=== PATIENT | female | born 1960 | race Caucasian/White ===

== ENCOUNTER 2018-08-05 13:17 | Emergency (ER) | payer MEDICAID, OTHER, SELFPAY ==
[~2018-08-05] VITALS: Ht 162.6 cm; Wt 113.6 kg
[2018-08-05] MEDS ORDERED: METF-839 PO (13:25)
[2018-08-05] MEDS ORDERED: CITA40TA4 PO (13:25)
[2018-08-05] MEDS ORDERED: LISI-538 PO (13:25)
[2018-08-05] MEDS ORDERED: RANI150T PO (13:25)
[2018-08-05] MEDS ORDERED: TIZA4CAP PO (13:25)
[2018-08-05] MEDS ORDERED: NAPR-885 PO (13:25)
[2018-08-05] MEDS ORDERED: PRED20TA PO (14:25)
[2018-08-05] MEDS ORDERED: ROBA500T PO (14:27)
[2018-08-05 14:45] VITALS: BP 157/79
== END 2018-08-05 15:25 | disposition home or self-care (01) ==
LOC: M ED 13:17
DX: M51.36 Other intervertebral disc degeneration, lumbar region (principal); M54.41 Lumbago with sciatica, right side; E11.9 Type 2 diabetes mellitus without complications; Z79.84 Long term (current) use of oral hypoglycemic drugs; Z79.899 Other long term (current) drug therapy; Z88.2 Allergy status to sulfonamides

== ENCOUNTER → 2019-01-13 | Outpatient (REF) | payer OTHER ==
[~2019-01-13] MED LIST: CITA40TA4 PO; LISI-538 PO; METF-839 PO; NAPR-885 PO; PRED20TA PO; RANI150T PO; ROBA500T PO; TIZA4CAP PO
[2019-01-13 17:56] LABS: C REACTIVE PROTEIN QUANTITATIV < 0.30 MG/DL (0.00-0.30); RHEUMATOID FACTOR QUANT < 10.0 IU/ML (<15.0)
[2019-01-19 14:07] LABS: ANTINUCLEAR ANTIBODIES DIRECT Negative (Negative); HLA-B27 Negative (.)
== END ==
LOC: M LABDRAW1 16:45
PROVIDERS: ATTEND Physician Assistant
DX: M47.817 Spondylosis without myelopathy or radiculopathy, lumbosacral region (principal)

== ENCOUNTER → 2019-07-10 | Outpatient (REF) | payer OTHER ==
[2019-07-10 18:46] LABS: CHLAMYDIA DNA AMPLIFICATION NEGATIVE (NEGATIVE); GC DNA AMPLIFICATION NEGATIVE (NEGATIVE)
== END ==
LOC: M SFHCLERA 10:49
PROVIDERS: ATTEND Nurse Practitioner Family
DX: R30.0 Dysuria (principal); R53.81 Other malaise

== ENCOUNTER → 2019-07-12 | Outpatient (CLI) | payer OTHER ==
[2019-07-12 12:16] LABS: BLOOD UREA NITROGEN 16 MG/DL (7-18); CREATININE FOR GFR 0.98 MG/DL (0.55-1.30); GLOMERULAR FILTRATION RATE > 60.0 (>45)
== END ==
LOC: M LAB 09:48
PROVIDERS: ATTEND Physician Assistant
DX: M47.817 Spondylosis without myelopathy or radiculopathy, lumbosacral region (principal); M51.37 Other intervertebral disc degeneration, lumbosacral region

== ENCOUNTER → 2019-07-17 | Outpatient (CLI) | payer OTHER ==
--- NOTE | 2019-07-17 09:31 | REPVR ---
PROCEDURE INFORMATION: Exam: MR Lumbar Spine Without Contrast. Exam date and time: 07/17/2019 8:27 AM Age: 58 years old Clinical indication: Patient HX: Low back pain sciatica worse on RT side nki no priors; Additional info: Ddd lumbosacral region TECHNIQUE: Imaging protocol: Multiplanar magnetic resonance images of the lumbar spine without intravenous contrast. COMPARISON: No relevant prior studies available. FINDINGS: Vertebrae: The lumbar vertebral bodies are normal in height , signal intensity and alignment.No acute fracture or dislocation is seen. Marrow: There is a normal proportion of hematopoietic bone marrow and fat for this patient's age.There is no evidence of abnormal bone marrow signal intensity to suggest contusion or infection. Spinal epidural space: There is no evidence of epidural masses or hemorrhage. Spinal cord: The conus medullaris is normal. The cauda equina nerve roots demonstrate no crowding or displacement. L1-L2: There is a mild diffuse posterior bulge causing mild effacement of the thecal sac.The facet joints demonstrate moderate degenerative narrowing and sclerosis. There is thickening of the ligamentum flavum.There is no evidence of spinal canal narrowing. There is mild bilateral foraminal stenosis. L2-L3: There is a mild diffuse posterior bulge causing mild effacement of the thecal sac. Moderate left foraminal protrusion.The facet joints demonstrate marked degenerative narrowing and sclerosis.There is thickening of the ligamentum flavum.There is mild spinal canal narrowing, with an AP canal dimension of 10 mm. There is severe left foraminal stenosis. There is compression on the left exiting nerve root. L3-L4: There is a mild diffuse posterior bulge causing mild effacement of the thecal sac.The facet joints demonstrate moderate degenerative narrowing and sclerosis. There is thickening of the ligamentum flavum.There is mild spinal canal narrowing, with an AP canal dimension of 10 mm. There is mild bilateral foraminal stenosis. L4-L5: There is a mild diffuse posterior bulge causing mild effacement of the thecal sac.The facet joints demonstrate marked degenerative narrowing and sclerosis. There is thickening of the ligamentum flavum.There is mild spinal canal narrowing, with an AP canal dimension of 10 mm. There is mild left foraminal stenosis. There is severe right foraminal stenosis. There is compression on the right exiting nerve root. L5-S1:. Small diffuse posterior herniation.The facet joints demonstrate moderate degenerative narrowing and sclerosis.There is no evidence of spinal canal narrowing. There is moderate bilateral foraminal stenosis. Soft tissues: The prevertebral soft tissues appear normal. IMPRESSION: MRI of the lumbar spine reveals multilevel degenerative spondylitic changes and degenerative disc disease as described above. Electronically signed by: Wilfred Martinez On 07/17/2019 09:31:01 AM
== END ==
LOC: M RAD 08:06
PROVIDERS: ATTEND Physician Assistant
DX: M48.061 Spinal stenosis, lumbar region without neurogenic claudication (principal); M51.26 Other intervertebral disc displacement, lumbar region; M51.27 Other intervertebral disc displacement, lumbosacral region

== ENCOUNTER → 2019-07-19 | Outpatient (CLI) | payer OTHER ==
[~2019-07-19] MED LIST changes: +CONRAY-43 43% 50ML VIAL (Q9960) As Ordered ONE; +PROHANCE 279.3MG/ML 5ML VIAL (A9576) As Ordered ONE
--- NOTE | 2019-07-19 10:23 | REP ---
MR arthrogram right hip: History: Rule out labral tear. Trochanteric bursitis. Right hip pain for 1 year. Comparison studies: No comparison study. Technique: Precontrast imaging includes coronal T1 and T2-weighted scans of both hips. Postcontrast small field of view high resolution axial, coronal and sagittal images are acquired in T1 and T2-weighted scans with fat saturation. MR arthrographic findings: Pre-injection MR imaging demonstrates that cortical and medullary bone signal intensity is normal in the proximal femurs and in the visualized bony pelvic ring bilaterally. There is no evidence to suggest avascular necrosis. There is a small peritrochanteric fluid collection and there is surrounding edema in the soft tissues about the greater trochanter on the right consistent with peritrochanteric tendinobursitis. There are similar but less prominent changes on the left. There is bilateral spurring of the greater trochanters. There is no evidence of significant hip joint effusion. The pre-injection bilateral images demonstrate a somewhat nodular change in the uterine endometrium which merits further evaluation. I cannot exclude an endometrial mass. Recommend pelvic sonography. Also noted is some heterogeneous increased signal intensity at the common hamstring tendon insertion on the right which may reflect hamstring tendonitis. Post injection MR imaging demonstrates good filling and enhancement of the hip articulation. There is some extra-articular injection artifact particularly anteriorly. There is no evidence of labral cartilage disruption. Mild acetabular and femoral head chondromalacia is suspected. Ligamentum teres is intact. No loose body is seen. Head and neck junction morphology is felt to be normal. Impression: There is no evidence of labral tear. There are fairly prominent peritrochanteric tendino-bursitis changes right greater than left. Mild chondromalacia changes are noted. Possible 2.8 cm endometrial nodule or mass lesion. Recommend pelvic sonography, rule out endometrial neoplasm. Electronically Signed by Star Perkins MD 07/19/2019 02:29 P
--- NOTE | 2019-07-19 14:07 | REP ---
Reason For Exam/Comment: Trochanteric bursitis, rule out labral tear Procedure: Right hip MRI arthrogram The procedure was performed by TUAN Rosario, under the direct supervision of Dr. Perkins. The benefits and risks including but not limited to pain, infection, bleeding and anaphylaxis were explained to the patient and informed consent was obtained both verbally and written. Directly prior to the start of the procedure, a formal timeout was completed in the procedure room. Technique: The right femoral neck joint space was localized using fluoroscopic guidance. The skin was prepped and draped in the usual sterile fashion. 5 mL of 1% lidocaine 10 mg/ml was used as a local anesthetic. Using fluoroscopic guidance a 22-gauge spinal needle was inserted and advanced to the right femoral neck joint space . 1 mL of Conray 43 was injected to verify needle placement. 12 mL of a solution containing 20 ml of sterile saline and a 0.15 ml of ProHance was injected into the joint. The needle was removed and the patient was taken MRI for post procedural imaging. The patient tolerated the procedure well and there were no immediate complications. 0.2 minutes of fluoroscopy time was utilized for this procedure. Some fluoroscopic images are performed with last image hold technology. These images require no additional radiation. Reviewed by TUAN Moran 07/19/2019 10:21 A Electronically Signed by Star Perkins MD 07/19/2019 01:59 P
== END ==
LOC: M RADPRO 07:09
PROVIDERS: ATTEND Physician Assistant
DX: M70.61 Trochanteric bursitis, right hip (principal)
CPT/HCPCS: 27093; 73723; 77002; A9576; Q9960

== ENCOUNTER 2019-08-01 14:09 | Emergency (ER) | payer OTHER ==
[~2019-08-01] VITALS: Ht 162.6 cm; Wt 133.2 kg
[~2019-08-01 14:09] MED LIST changes: -CONRAY-43 43% 50ML VIAL (Q9960) As Ordered ONE; -PROHANCE 279.3MG/ML 5ML VIAL (A9576) As Ordered ONE
[2019-08-01] MEDS ORDERED: TRAZ-189 PO (14:25)
[2019-08-01] MEDS ORDERED: ALBU8.5H INH (14:25)
[2019-08-01] MEDS ORDERED: DULO1CAP4 PO (14:25)
[2019-08-01] MEDS ORDERED: GABA-843 PO (14:25)
[2019-08-01] MEDS ORDERED: ATOR80TA59 PO (14:26)
[2019-08-01] MEDS ORDERED: ASPIRIN 81 MG CHEW TABLET PO ONE (15:00)
--- NOTE | 2019-08-01 15:00 | REP ---
Chest x-ray: Two views. History: Dyspnea and cough. Findings: Monitoring electrodes are seen. The lungs are symmetrically aerated and free of infiltrate. Pleural angles are sharp. Heart is not felt to be enlarged. There are degenerative changes in the thoracic spine. There is slight fissural thickening visible on the lateral radiograph. There are clips in the upper abdomen on the right. Impression: No active cardiopulmonary disease. Electronically Signed by Star Perkins MD 08/01/2019 02:52 P
[2019-08-01 15:05] LABS: BASO % 0.5 % (0.0-1.0); EOS # 0.5 10^3/uL (0.0-0.5); EOS % 5.9 % (0.0-3.0); HEMATOCRIT 33.3 % (36.0-47.0); HEMOGLOBIN 10.9 g/dl (12.0-15.5); LYMPH # 1.4 10^3/uL (1.5-5.0); LYMPH % 18.9 % (24.0-44.0); MEAN CORPUSCULAR HEMOGLOBIN 28.6 pg (27.0-33.0); MEAN CORPUSCULAR HGB CONC 32.7 g/dl (32.0-36.5); MEAN CORPUSCULAR VOLUME 87.4 fl (80.0-96.0); MONO # 0.7 10^3/uL (0.0-0.8); MONO % 9.2 % (0.0-5.0); NEUTROPHILS # 4.9 10^3/uL (1.5-8.5); PLATELET COUNT, AUTOMATED 184 10^3/uL (150-450); RED BLOOD COUNT 3.81 10^6/uL (4.00-5.40); WHITE BLOOD COUNT 7.6 10^3/uL (4.0-10.0)
[2019-08-01 15:15] LABS: INR 1.09; PROTHROMBIN TIME 13.8 SECONDS (11.8-14.0)
[2019-08-01 15:18] LABS: D-DIMER QUANT 889.3 ng/ml (<500)
--- NOTE | 2019-08-01 15:38 | REP ---
Bilateral lower extremity Duplex Doppler venous ultrasound: Real time compression and duplex Doppler interrogation of the bilateral lower extremity deep venous system is performed. Bilaterally, the common femoral, superficial femoral and popliteal veins are fully compressible with transducer pressure and demonstrate normal spontaneous and phasic flow, without evidence of deep venous thrombosis. Impression: No evidence of deep venous thrombosis of the bilateral lower extremity femoral popliteal venous system. Electronically Signed by Douglas Duke MD 08/01/2019 03:30 P
[2019-08-01 15:41] LABS: ALBUMIN 3.7 GM/DL (3.2-5.2); ALT/SGPT 30 U/L (12-78); BILIRUBIN,DIRECT 0.2 MG/DL (0.0-0.2); BILIRUBIN,TOTAL 0.9 MG/DL (0.2-1.0); BLOOD UREA NITROGEN 11 MG/DL (7-18); CALCIUM LEVEL 9.5 MG/DL (8.8-10.2); CARBON DIOXIDE LEVEL 31 MEQ/L (21-32); CHLORIDE LEVEL 110 MEQ/L (98-107); CK-MB VALUE MASS 1.6 NG/ML (<3.6); CPK CREATINE PHOSPHOKINASE 153 U/L (26-192); CREATININE FOR GFR 0.85 MG/DL (0.55-1.30); GLOMERULAR FILTRATION RATE > 60.0 (>45); GLUCOSE, FASTING 125 MG/DL (70-100); MB/CK RELATIVE INDEX 1.05 (< OR =4); NT-PRO BNP 371 PG/ML (<125); POTASSIUM SERUM 3.8 MEQ/L (3.5-5.1); SODIUM LEVEL 144 MEQ/L (136-145); THYROID STIMULATING HORMONE 0.913 uIU/ML (0.358-3.740); TROPONIN I < 0.02 NG/ML (< 0.10)
[2019-08-01] MEDS ORDERED: ISOVUE-370 76% 100ML VIAL (Q9967) As Ordered ONE (17:11)
--- NOTE | 2019-08-01 17:57 | REPVR ---
PROCEDURE INFORMATION: Exam: CT Angiography Chest With Contrast Exam date and time: 08/01/2019 5:25 PM Age: 58 years old Clinical indication: Chest pain TECHNIQUE: Imaging protocol: Computed tomographic angiography of the chest with intravenous contrast. 3D rendering: MIP and/or 3D reconstructed images were created by the technologist. Radiation optimization: All CT scans at this facility use at least one of these dose optimization techniques: automated exposure control; mA and/or kV adjustment per patient size (includes targeted exams where dose is matched to clinical indication); or iterative reconstruction. Contrast material: ISOVUE 370; Contrast volume: 75 ml; Contrast route: IV; COMPARISON: [place] Chest, 2 view PA, Lat 08/01/2019 2:28 PM FINDINGS: Pulmonary arteries: No pulmonary arterial embolism. Aorta: Unremarkable. No aortic aneurysm. No aortic dissection. Lungs: Mild dependent opacities within the lung bases, likely atelectasis. No pulmonary consolidation. Pleural space: Unremarkable. No pneumothorax. No pleural effusion. Heart: Unremarkable. No cardiomegaly. No pericardial effusion. Gallbladder and bile ducts: Status post cholecystectomy. Spleen: Tiny calcified granulomas within the spleen. Kidneys and ureters: 7 cm cyst in the right kidney upper pole, incompletely visualized. Lymph nodes: Mild mediastinal and bilateral hilar lymphadenopathy, nonspecific. 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 No fracture or suspicious bone lesion. Soft tissues: Unremarkable. IMPRESSION: No pulmonary arterial embolism or other acute abnormality. Electronically signed by: Remy Roman On 08/01/2019 17:57:26 PM
--- NOTE | 2019-08-01 20:17 | ECGEPIP ---
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
--- NOTE | 2019-08-01 20:18 | ECGEPIP ---
[facility] - ED Test Date: 2019-08-01 Pat Name: TALIA SAAVEDRA Department: Room: - Gender: Female Grant Officer: rena : 1960 Requested By: DONNELL Hutton Order Number: [id number] Reading MD: Bridgett Larson Measurements Intervals [place] Rate: 81 P: 51 [place]: 186 QRS: -2 QRSD: 93 T: -7 QT: 384 QTc: 448 Interpretive Statements SINUS RHYTHM MINIMAL ST DEPRESSION INCREASED RATE 08/01/19 Electronically Signed on 08-01-2019 20:18:34 EDT by Bridgett Larson
[2019-08-01] MEDS ORDERED: ONDANSETRON 4MG/2ML VIAL (J2405) IV ONE (22:00)
[2019-08-01 22:02] LABS: CK-MB VALUE MASS 1.4 NG/ML (<3.6); CPK CREATINE PHOSPHOKINASE 152 U/L (26-192); MB/CK RELATIVE INDEX 0.92 (< OR =4); TROPONIN I < 0.02 NG/ML (< 0.10)
[2019-08-01 22:30] VITALS: BP 181/86
== END 2019-08-01 22:53 | disposition home or self-care (01) ==
LOC: M ED 14:09 → EDBD 14:09 → M ED 22:53
DX: R07.89 Other chest pain (principal); I10 Essential (primary) hypertension; J45.909 Unspecified asthma, uncomplicated; E78.5 Hyperlipidemia, unspecified; F33.9 Major depressive disorder, recurrent, unspecified; Z79.899 Other long term (current) drug therapy; Z79.84 Long term (current) use of oral hypoglycemic drugs; Z88.1 Allergy status to other antibiotic agents; Z88.2 Allergy status to sulfonamides; Z88.8 Allergy status to other drugs, medicaments and biological substances
CPT/HCPCS: 71046; 71275; 80048; 80076; 82550; 82553; 83880; 84443; 85025; 85379; 85610; 87486; 87581; 87633; 87798; 93005; 93041; 93970; 94760; 96374; 99285; J2405; Q9967

== ENCOUNTER → 2019-08-09 | Outpatient (CLI) | payer OTHER ==
[~2019-08-09] MED LIST changes: +ALBU8.5H INH; +ATOR80TA59 PO; +DULO1CAP4 PO; +GABA-843 PO; +TRAZ-189 PO
== END ==
LOC: M SLEEP HO 13:01
PROVIDERS: ATTEND Internal Medicine Cardiovascular Disease
DX: R06.83 Snoring (principal)

== ENCOUNTER → 2020-05-23 | Outpatient (CLI) | payer OTHER ==
[2020-05-23 14:23] LABS: BASO # 0.1 10^3/uL (0.0-0.2); BASO % 0.9 % (0.0-1.0); EOS # 0.5 10^3/uL (0.0-0.5); EOS % 8.4 % (0.0-3.0); HEMOGLOBIN 10.9 g/dl (12.0-15.5); LYMPH # 1.8 10^3/uL (1.5-5.0); MEAN CORPUSCULAR HEMOGLOBIN 25.3 pg (27.0-33.0); MEAN CORPUSCULAR HGB CONC 30.3 g/dl (32.0-36.5); MEAN CORPUSCULAR VOLUME 83.7 fl (80.0-96.0); MONO # 0.7 10^3/uL (0.0-0.8); MONO % 12.4 % (0.0-5.0); NEUTROPHILS # 2.5 10^3/uL (1.5-8.5); NEUTROPHILS % 45.8 % (36.0-66.0); PLATELET COUNT, AUTOMATED 190 10^3/uL (150-450); WHITE BLOOD COUNT 5.5 10^3/uL (4.0-10.0)
[2020-05-23 14:47] LABS: BLOOD UREA NITROGEN 13 MG/DL (7-18); CALCIUM LEVEL 9.5 MG/DL (8.8-10.2); CARBON DIOXIDE LEVEL 33 MEQ/L (21-32); CHLORIDE LEVEL 104 MEQ/L (98-107); CHOLESTEROL LEVEL 232 MG/DL (<200); CHOLESTEROL RISK RATIO 3.267 (<5); CREATININE FOR GFR 0.99 MG/DL (0.55-1.30); GLOMERULAR FILTRATION RATE > 60.0 (>45); GLUCOSE, FASTING 96 MG/DL (70-100); HDL CHOLESTEROL 71 MG/DL (>40); LDL CHOLESTEROL 136 MG/DL (<100); NON-HDL-C 161 MG/DL; POTASSIUM SERUM 4.6 MEQ/L (3.5-5.1); SODIUM LEVEL 139 MEQ/L (136-145); TRIGLYCERIDES LEVEL 124 MG/DL (<150)
[2020-05-23 14:50] LABS: HEMOGLOBIN A1c 6.2 %
[2020-05-23 14:54] LABS: TOTAL 25(OH) VITAMIN D 25.6 NG/ML (30.0-100.0)
== END ==
LOC: M PLALAB 11:51
PROVIDERS: ATTEND Internal Medicine
DX: E11.9 Type 2 diabetes mellitus without complications (principal)

== ENCOUNTER 2020-11-28 15:06 | Emergency (ER) | payer OTHER ==
[~2020-11-28] VITALS: Ht 162.6 cm; Wt 127.3 kg
[~2020-11-28 15:06] MED LIST changes: +GABA-282 PO; -GABA-843 PO; -LISI-538 PO; +LISI20TA33 PO
--- NOTE | 2020-11-28 15:31 | REP ---
INDICATION: FALL COMPARISON: None TECHNIQUE: Five views FINDINGS: There is tricompartmental marginal osteophytosis. There is a tiny oval-shaped smoothly marginated appearing ossific density seen superior and lateral to the patella. IMPRESSION: 1. Chronic changes as described above. 2. Age undetermined tiny patellar fracture versus tiny bipartite patella. This needs to be correlated clinically and if necessary obtain CT. <Electronically signed by Arturo Carty > 11/28/20 [id number]
[2020-11-28] MEDS ORDERED: BOOSTRIX/ADACEL VACCINE (DIPHTH/PERTUSS/ACELL/TETANUS) 0.5ML SYR IM ONE (18:20)
[2020-11-28] MEDS ORDERED: ACETAMINOPHEN 500 MG TAB PO ONE (18:20)
--- NOTE | 2020-11-28 18:39 | REPVR ---
PROCEDURE INFORMATION: Exam: CT Right Lower Extremity Without Contrast, Knee Exam date and time: 11/28/2020 5:22 PM Age: 59 years old Clinical indication: Injury or trauma; Fall; Blunt trauma; Knee; Right; Additional info: Fall, possible patellar fracture on imag TECHNIQUE: Imaging protocol: CT of the Right lower extremity without contrast was performed. Exam focused on the knee. Radiation optimization: All CT scans at this facility use at least one of these dose optimization techniques: automated exposure control; mA and/or kV adjustment per patient size (includes targeted exams where dose is matched to clinical indication); or iterative reconstruction. COMPARISON: CR Knee, complete 11/28/2020 3:04 PM FINDINGS: Bones/joints: There is a large suprapatellar joint effusion. There is prominent osteophyte formation medial and lateral compartments. There is osteophyte formation along the patella anterior compartment. Osteophyte formation is noted along the medial and lateral margin of the tibial spine and also the posterior aspect of the tibia. There is no evidence of fracture. Soft tissues: Normal. IMPRESSION: 1. Large suprapatellar joint effusion. 2. Osteophyte formation all 3 compartments. Electronically signed by: Noah Sebastian On 11/28/2020 18:38:31 PM
[2020-11-28 19:18] VITALS: BP 119/65
== END 2020-11-28 19:20 | disposition home or self-care (01) ==
LOC: M ED 15:06
DX: S80.211A Abrasion, right knee, initial encounter (principal); M25.561 Pain in right knee; M25.461 Effusion, right knee; W19.XXXA Unspecified fall, initial encounter; Y92.009 Unspecified place in unspecified non-institutional (private) residence as the place of occurrence of the external cause; Y93.9 Activity, unspecified; Y99.9 Unspecified external cause status; E11.9 Type 2 diabetes mellitus without complications; I10 Essential (primary) hypertension; J45.909 Unspecified asthma, uncomplicated; M25.761 Osteophyte, right knee; Z79.84 Long term (current) use of oral hypoglycemic drugs; Z79.899 Other long term (current) drug therapy; Z88.2 Allergy status to sulfonamides; Z88.6 Allergy status to analgesic agent

== ENCOUNTER → 2021-01-14 | Outpatient (CLI) | payer OTHER ==
--- NOTE | 2021-01-14 11:35 | REP ---
INDICATION: PAIN IN DANELLE KNEE. COMPARISON: Radiographs and CT 11/28/2020. TECHNIQUE: Multiple sequences obtained in the axial, coronal and sagittal planes. FINDINGS: Menisci: There is a complex tear of the anterior and posterior horns of the lateral meniscus. The medial meniscus appears intact. Cruciate ligaments: Intact. Collateral ligaments: Intact. Extensor mechanism/patellar retinacula: Intact. Cartilage: There is moderate global chondromalacia. There is some cartilaginous fissuring of the weight-bearing surface of the lateral femoral condyle and tibial plateau. Bone marrow: There is minor subcortical marrow edema in the posterior medial femoral condyle. Joint fluid: There is a large joint effusion. Popliteal region: There is a Card's cyst medially measuring approximately 3.1 x 1.4 x 0.8 cm. There is moderate diffuse spurring. IMPRESSION: Complex tear anterior and posterior horns lateral meniscus. Moderate global chondromalacia with fissuring of the weight-bearing surface of the lateral femoral condyle and tibial plateau. Large joint effusion. Card's cyst. <Electronically signed by Douglas Duke > 01/14/21 [id number]
--- NOTE | 2021-01-14 11:48 | REP ---
INDICATION: DANELLE KNEE PAIN. COMPARISON: 07/18/2020. TECHNIQUE: Multiple sequences obtained in the axial, coronal and sagittal planes. FINDINGS: Menisci: There is a complex tear of the posterior horn of the medial meniscus. The lateral meniscus appears intact. Cruciate ligaments: Intact. Collateral ligaments: Intact. Extensor mechanism/patellar retinacula: Intact. Cartilage: Moderate diffuse chondromalacia of the patella is stable. There is stable moderately severe chondromalacia of the medial femoral condyle and tibial plateau. There is moderate diffuse chondromalacia of the lateral femoral condyle and tibial plateau. There is a focal chondral defect of the weight-bearing surface of both the lateral femoral condyle and tibial plateau measuring approximately 5 mm in diameter, mildly progressed. Bone marrow: Mild subchondral marrow edema is seen peripherally in the medial femoral condyle, unchanged. Joint fluid: There is a small joint effusion. Popliteal region: There is a very small amount of fluid in the medial popliteal fossa. IMPRESSION: No significant change since prior study as discussed above. <Electronically signed by Douglas Duke > 01/14/21 [id number]
== END ==
LOC: M PLAIMG 10:12
PROVIDERS: ATTEND Physician Assistant
DX: S83.232A Complex tear of medial meniscus, current injury, left knee, initial encounter (principal); S83.231A Complex tear of medial meniscus, current injury, right knee, initial encounter; M22.42 Chondromalacia patellae, left knee; M25.462 Effusion, left knee; M25.461 Effusion, right knee; M71.21 Synovial cyst of popliteal space [Baker], right knee; M25.561 Pain in right knee; M25.562 Pain in left knee; X58.XXXA Exposure to other specified factors, initial encounter; Y92.9 Unspecified place or not applicable; Y99.9 Unspecified external cause status

== ENCOUNTER → 2021-02-25 | Outpatient (CLI) | payer OTHER ==
--- NOTE | 2021-02-26 17:30 | REPVR ---
PROCEDURE INFORMATION: Exam: MR Lumbar Spine Without Contrast Exam date and time: 02/25/2021 2:47 PM Age: 60 years old Clinical indication: Low back pain; Additional info: Disc degeneration TECHNIQUE: Imaging protocol: Multiplanar magnetic resonance images of the lumbar spine without intravenous contrast. COMPARISON: MRI-Spine, L.S. without con 07/17/2019 8:24 AM FINDINGS: Vertebral body heights are maintained. No abnormal marrow signal. No cord compression. No abnormal cord signal. Conus medullaris terminates at the L1 level. Paravertebral soft tissues are unremarkable. L1-L2: Broad-based disc bulge and facet hypertrophy cause mild canal narrowing and mild bilateral foraminal narrowing. L2-L3: Broad-based disc bulge and facet hypertrophy cause mild canal narrowing and effacement of the left lateral recess. Mild right and moderate to severe left foraminal narrowing with impingement upon the exiting left L2 nerve root. L3-L4: Combination of broad-based disc bulge, facet hypertrophy, and thickening of the ligamentum flavum cause mild to moderate canal narrowing with effacement of the bilateral lateral recesses. Mild right and moderate left foraminal narrowing. L4-L5: Broad-based disc bulge and facet hypertrophy cause mild canal narrowing with severe right and moderate to severe left foraminal narrowing and impingement upon the exiting bilateral L4 nerve roots. L5-S1: Broad-based disc bulge and facet hypertrophy cause mild canal narrowing with effacement of the bilateral lateral recesses and impingement upon the traversing bilateral S1 nerve roots. Moderate to severe bilateral foraminal narrowing with impingement upon the bilateral exiting L5 nerve roots. IMPRESSION: Multilevel advanced spondylotic changes of the lumbar spine, as detailed above. Electronically signed by: Igor Butcher On 02/26/2021 17:29:33 PM
== END ==
LOC: M PLAIMG 02-17 09:21
PROVIDERS: ATTEND Physician Assistant
DX: M51.36 Other intervertebral disc degeneration, lumbar region (principal)

== ENCOUNTER → 2021-07-23 | Outpatient (CLI) | payer OTHER ==
[~2021-07-23] MED LIST changes: -CITA40TA4 PO; +CITA40TA7 PO
== END ==
LOC: M RAD 12:32
PROVIDERS: ATTEND Physician Assistant
DX: N93.9 Abnormal uterine and vaginal bleeding, unspecified (principal); D25.9 Leiomyoma of uterus, unspecified

== ENCOUNTER → 2022-01-15 | Outpatient (CLI) | payer OTHER ==
[2022-01-15 10:27] LABS: APPEARANCE, URINE MANUAL CLEAR (CLEAR); COLOR, URINE MANUAL YELLOW (YELLOW); PH,URINE MAN 5.5 UNITS (5.0 - 7.0)
[2022-01-15 10:28] LABS: BASO % 0.8 % (0.0-1.0); BILIRUBIN, URINE MANUAL NEGATIVE (NEGATIVE); BLOOD URINE MANUAL NEGATIVE (NEGATIVE); EOS # 0.5 10^3/uL (0.0-0.5); EOS % 8.9 % (0.0-3.0); GLUCOSE, URINE (UA) MANUAL NEGATIVE (NEGATIVE); HEMATOCRIT 39.5 % (36.0-47.0); HEMOGLOBIN 12.6 g/dl (12.0-15.5); KETONE, URINE MANUAL NEGATIVE (NEGATIVE); LEUKOCYTE ESTERASE, URINE MAN NEGATIVE (NEGATIVE); LYMPH # 1.8 10^3/uL (1.5-5.0); LYMPH % 35.1 % (24.0-44.0); MEAN CORPUSCULAR HEMOGLOBIN 27.9 pg (27.0-33.0); MEAN CORPUSCULAR HGB CONC 31.9 g/dl (32.0-36.5); MEAN CORPUSCULAR VOLUME 87.6 fl (80.0-96.0); MONO # 0.6 10^3/uL (0.0-0.8); MONO % 11.6 % (2.0-8.0); NEUTROPHILS # 2.2 10^3/uL (1.5-8.5); NEUTROPHILS % 42.8 % (36.0-66.0); NITRITE, URINE MANUAL NEGATIVE (NEGATIVE); PLATELET COUNT, AUTOMATED 157 10^3/uL (150-450); PROTEIN, URINE MANUAL NEGATIVE (NEGATIVE); RED BLOOD COUNT 4.51 10^6/uL (4.00-5.40); UROBILINOGEN, URINE MANUAL NORMAL (NORMAL); WHITE BLOOD COUNT 5.2 10^3/uL (4.0-10.0)
[2022-01-15 11:27] LABS: ALBUMIN 3.6 GM/DL (3.2-5.2); BILIRUBIN,TOTAL 0.6 MG/DL (0.2-1.0); CHOLESTEROL RISK RATIO 4.306 (<5); CREATININE FOR GFR 1.03 MG/DL (0.55-1.30); FREE T4 0.95 NG/DL (0.76-1.46); GLOMERULAR FILTRATION RATE 57.6 (>45); THYROID STIMULATING HORMONE 1.85 uIU/ML (0.358-3.740); TOTAL PROTEIN 7.1 GM/DL (6.4-8.2)
[2022-01-15 12:00] LABS: HEMOGLOBIN A1c 6.9 %
[2022-01-15 12:03] LABS: TOTAL 25(OH) VITAMIN D 24.8 NG/ML (30.0-100.0)
== END ==
LOC: M PLALAB 08:28
PROVIDERS: ATTEND Internal Medicine
DX: E78.2 Mixed hyperlipidemia (principal); E11.9 Type 2 diabetes mellitus without complications; I10 Essential (primary) hypertension; E55.9 Vitamin D deficiency, unspecified

== ENCOUNTER → 2022-06-23 | Outpatient (CLI) | payer OTHER, MEDICARE | LOC: M PLAIMG 09:18 | PROVIDERS: ATTEND Family Medicine | DX: R42 Dizziness and giddiness (principal) ==

== ENCOUNTER → 2022-07-10 | Outpatient (CLI) | payer MEDICARE, OTHER ==
[2022-07-10 14:20] LABS: APPEARANCE, URINE HAZY (CLEAR); BACTERIA, URINE AUTO NEGATIVE (NEGATIVE); BILIRUBIN, URINE AUTO NEGATIVE (NEGATIVE); BLOOD, URINE BLOOD NEGATIVE (NEGATIVE); COLOR, URINE YELLOW (YELLOW); GLUCOSE, URINE (UA) AUTO NEGATIVE (NEGATIVE); KETONE, URINE AUTO NEGATIVE (NEGATIVE); LEUKOCYTE ESTERASE, URINE AUTO NEGATIVE (NEGATIVE); NITRITE, URINE AUTO NEGATIVE (NEGATIVE); PROTEIN, URINE AUTO NEGATIVE (NEGATIVE); RBC, URINE AUTO 0 /HPF (0-3); SPECIFIC GRAVITY URINE AUTO 1.017 (1.002-1.035); SQUAMOUS EPITHELIAL CELL UR AU 21 /HPF (0-6); UROBILINOGEN, URINE AUTO 0.2 mg/dL (0.0-2.0); WBC, URINE AUTO 3 /HPF (0-3)
[2022-07-10 14:28] LABS: BASO # 0.1 10^3/uL (0.0-0.2); BASO % 0.9 % (0.0-1.0); EOS # 0.4 10^3/uL (0.0-0.5); EOS % 7.3 % (0.0-3.0); HEMATOCRIT 39.3 % (36.0-47.0); HEMOGLOBIN 12.5 g/dl (12.0-15.5); LYMPH # 1.7 10^3/uL (1.5-5.0); LYMPH % 32.2 % (24.0-44.0); MEAN CORPUSCULAR HEMOGLOBIN 28.4 pg (27.0-33.0); MEAN CORPUSCULAR HGB CONC 31.8 g/dl (32.0-36.5); MEAN CORPUSCULAR VOLUME 89.3 fl (80.0-96.0); MONO # 0.6 10^3/uL (0.0-0.8); MONO % 10.4 % (2.0-8.0); NEUTROPHILS # 2.6 10^3/uL (1.5-8.5); NEUTROPHILS % 48.8 % (36.0-66.0); PLATELET COUNT, AUTOMATED 187 10^3/uL (150-450); WHITE BLOOD COUNT 5.4 10^3/uL (4.0-10.0)
[2022-07-10 14:35] LABS: CREATININE, URINE 147.4 MG/DL
[2022-07-10 14:36] LABS: MAU/CREAT RATIO 16.9 MCG/MG (0.0-30.0)
[2022-07-10 14:43] LABS: ALBUMIN 3.7 G/DL (3.2-5.2); BILIRUBIN,TOTAL 0.9 MG/DL (0.3-1.2); CALCIUM LEVEL 10.1 MG/DL (8.3-10.6); CHOLESTEROL RISK RATIO 3.44 (<5); CREATININE FOR GFR 1.02 MG/DL (0.55-1.30); FREE T4 1.03 NG/DL (0.89-1.76); GLOMERULAR FILTRATION RATE 58.3 (>45); POTASSIUM SERUM 4.5 MMOL/L (3.5-5.1); THYROID STIMULATING HORMONE 1.25 uIU/ML (0.55-4.78)
[2022-07-10 15:33] LABS: HEMOGLOBIN A1c 6.3 % (4.0-6.0)
== END ==
LOC: M PLALAB 10:13
PROVIDERS: ATTEND Family Medicine
DX: E11.9 Type 2 diabetes mellitus without complications (principal); E66.9 Obesity, unspecified; F33.9 Major depressive disorder, recurrent, unspecified

== ENCOUNTER → 2022-07-16 | Outpatient (CLI) | payer MEDICARE, OTHER | LOC: M WHC 09:45 | PROVIDERS: ATTEND Family Medicine | DX: Z12.31 Encounter for screening mammogram for malignant neoplasm of breast (principal) ==

== ENCOUNTER → 2023-09-22 | Outpatient (CLI) | payer OTHER, MEDICAID ==
[2023-09-22 14:23] LABS: APPEARANCE, URINE CLEAR (CLEAR); BACTERIA, URINE AUTO NEGATIVE (NEGATIVE); BILIRUBIN, URINE AUTO NEGATIVE (NEGATIVE); BLOOD, URINE BLOOD 2+ (NEGATIVE); COLOR, URINE YELLOW (YELLOW); GLUCOSE, URINE (UA) AUTO NEGATIVE (NEGATIVE); KETONE, URINE AUTO NEGATIVE (NEGATIVE); LEUKOCYTE ESTERASE, URINE AUTO NEGATIVE (NEGATIVE); NITRITE, URINE AUTO NEGATIVE (NEGATIVE); PROTEIN, URINE AUTO NEGATIVE (NEGATIVE); RBC, URINE AUTO 0 /HPF (0-3); SPECIFIC GRAVITY URINE AUTO 1.008 (1.002-1.035); SQUAMOUS EPITHELIAL CELL UR AU 4 /HPF (0-6); UROBILINOGEN, URINE AUTO 0.2 mg/dL (0.0-2.0); WBC, URINE AUTO 0 /HPF (0-3)
[2023-09-22 14:24] LABS: BASO # 0.1 10^3/uL (0.0-0.2); EOS # 0.3 10^3/uL (0.0-0.5); EOS % 5.4 % (0.0-3.0); HEMATOCRIT 31.9 % (36.0-47.0); HEMOGLOBIN 9.6 g/dl (12.0-15.5); LYMPH # 1.5 10^3/uL (1.5-5.0); LYMPH % 28.9 % (24.0-44.0); MEAN CORPUSCULAR HEMOGLOBIN 23.1 pg (27.0-33.0); MEAN CORPUSCULAR HGB CONC 30.1 g/dl (32.0-36.5); MEAN CORPUSCULAR VOLUME 76.7 fl (80.0-96.0); MONO # 0.7 10^3/uL (0.0-0.8); NEUTROPHILS # 2.6 10^3/uL (1.5-8.5); NEUTROPHILS % 50.3 % (36.0-66.0); PLATELET COUNT, AUTOMATED 217 10^3/uL (150-450); RED BLOOD COUNT 4.16 10^6/uL (4.00-5.40); WHITE BLOOD COUNT 5.2 10^3/uL (4.0-10.0)
[2023-09-22 14:31] LABS: HEMOGLOBIN A1c 6.5 % (4.0-6.0)
[2023-09-22 14:39] LABS: CREATININE, URINE 70.9 MG/DL; MAU/CREAT RATIO 14.1 MCG/MG (0.0-30.0)
[2023-09-22 14:40] LABS: ALBUMIN 3.8 G/DL (3.2-5.2); BILIRUBIN,TOTAL 0.7 MG/DL (0.3-1.2); CALCIUM LEVEL 9.9 MG/DL (8.3-10.6); CHOLESTEROL RISK RATIO 2.11 (<5); CREATININE FOR GFR 1.07 MG/DL (0.55-1.30); HDL CHOLESTEROL 67.2 MG/DL (>40); LDL CHOLESTEROL 58.8 MG/DL (<100); NON-HDL-C 74.8 MG/DL; POTASSIUM SERUM 4.3 MMOL/L (3.5-5.1)
[2023-09-22 14:41] LABS: FREE T4 1.17 NG/DL (0.89-1.76); THYROID STIMULATING HORMONE 0.581 uIU/ML (0.55-4.78)
== END ==
LOC: M PLALAB 09:44
PROVIDERS: ATTEND Family Medicine
DX: Z00.01 Encounter for general adult medical examination with abnormal findings (principal); Z79.899 Other long term (current) drug therapy

== ENCOUNTER → 2025-01-11 | Outpatient (CLI) | payer MEDICARE, MEDICAID ==
[~2025-01-11] MED LIST changes: +GABA-1172 PO; -GABA-282 PO
== END ==
LOC: M WHC 10:03
PROVIDERS: ATTEND Family Medicine
DX: Z12.31 Encounter for screening mammogram for malignant neoplasm of breast (principal); R92.313 Mammographic fatty tissue density, bilateral breasts; Z78.0 Asymptomatic menopausal state